=== PATIENT | male | born 1950 | race Native Hawaiian/Other Pacific Islander ===

== ENCOUNTER → 2019-06-14 | Outpatient (CLI) | payer MEDICARE, BC ==
[2019-06-14 06:48] LABS: African American GFR (CKD) >90 (>60 ml/min/1.73 sqM); Blood Urea Nitrogen 13 mg/dL (9-20); Non-African American GFR(CKD) >90 (>60 ml/min/1.73 sqM)
--- NOTE | 2019-06-14 08:29 | CT ---
EXAMINATION TYPE: CT chest w con DATE OF EXAM: 06/14/2019 COMPARISON: None HISTORY: Shortness of breath CT DLP: 463.30 mGycm Automated exposure control for dose reduction was used. CONTRAST: CT scan of the chest is performed with IV Contrast, patient injected with 100 mL of Isovue 300. FINDINGS: LUNGS: There is biapical pleural-based thickening. No consolidative pneumonia. No pleural effusion. N o pneumothorax. Subsegmental changes involving the lungs are most typical of scar or atelectasis. MEDIASTINUM: There are no greater than 1 cm hilar or mediastinal lymph nodes. The heart is mildly pro minent. A trace of pericardial fluid is seen. Atherosclerotic change aorta. Aorta of normal caliber. Mild coronary artery calcification seen.. OTHER: Hypertrophic and degenerative changes of the spine are seen. Correlate for hepatic steatosis. There is a 5 mm hyperdense lesion in the left lobe of the liver too small to characterize. Small fla sh hemangioma in the differential diagnosis IMPRESSION: 1. Apical pleural thickening with no acute intrathoracic process. 2. Mild coronary artery atherosclerotic changes. 3. 5 mm hyperdense lesion left lobe of liver is too small to characterize. Perhaps represents flash h emangioma. A 3 to 6 month follow-up CT of the abdomen could be obtained for further characterization
== END | disposition home or self-care (01) ==
LOC: RADCTMAIN 06:21
PROVIDERS: ATTEND Pediatrics
DX: J92.9 Pleural plaque without asbestos (principal); I25.10 Atherosclerotic heart disease of native coronary artery without angina pectoris; R06.02 Shortness of breath; Z87.891 Personal history of nicotine dependence
CPT/HCPCS: 82565; 84520; 71260; 36415; Q9967

== ENCOUNTER → 2019-06-29 | Outpatient (CLI) | payer MEDICARE, BC ==
--- NOTE | 2019-06-29 15:49 | US ---
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 EXAM MEASUREMENTS: RIGHT: Peak Systolic Velocity (PSV) cm/sec ----- Right CCA: 102. ----- Right ICA: 66.7 ----- Right ECA: 97.9 ICA/CCA ratio: 0.64 RIGHT: End Diastole cm/sec ----- Right CCA: 23.1 ----- Right ICA: 27.2 ----- Right ECA: 20.3 LEFT: Peak Systolic Velocity (PSV) cm/sec ----- Left CCA: 71.6 ----- Left ICA: 96.0 ----- Left ECA: 84.5 ICA/CCA ratio: 1.4 LEFT: End Diastole cm/sec ----- Left CCA: 26.6 ----- Left ICA: 43.3 ----- Left ECA: 19.2 VERTEBRALS (direction of flow): Right Vertebral: unable to see arterial flow Left Vertebral: Antegrade Avila scale images show mild peripheral plaque left carotid bulb level. Velocity measurements and rati os remain within normal limits in the visualized portion of both internal carotid arteries. IMPRESSION: No hemodynamically significant stenosis is seen in either internal carotid artery. Nor mal Antegrade flow in right vertebral artery is not documented. Criteria for Assigning % of Stenosis / Diameter reduction (Estimation based on the indirect measurements of the internal carotid artery velocities (ICA PSV). 1. Normal (no stenosis)=ICA PSV < 125 cm/s: ratio < 2.0: ICA EDV<40 cm/s. 2. Less than 50% stenosis=ICA PSV < 125 cm/s: ratio < 2.0: ICA EDV<40 cm/s. 3. 50 to 69% stenosis=ICA PSV of 125 to 230 cm/s: ration 2.0 ? 4.0: ICA EDV 40-100 cm/s. 4. Greater than 70% stenosis to near occlusion= ICA PSV > 230 cm/s: ratio > 4.0: ICA EDV > 100 cm/s. 5. Near occlusion= ICA PSV velocities may be low or undetectable: variable ratio and ICA EDV. 6. Total occlusion=unable to detect flow.
--- NOTE | 2019-06-30 11:00 | ECHOF ---
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 This was a technically difficult study with suboptimal views. The left ventricular size is normal. There is mild concentric left ventricular hypertrophy. Overa ll left ventricular systolic function is normal with, an EF between 55 - 60 %. The diastolic fillin g pattern is normal for the age of the patient 11.45. The right ventricle is normal in size. The left atrial size is normal. Normal LA size by volume 22+/-6 ml/m2. The right atrial size is normal. 5.0mg of Lumason was utilized for enhancement of images The aortic valve is trileaflet and appears structurally normal. The mitral valve is normal. There is trace mitral regurgitation. The tricuspid valve appears structurally normal. Trace tricuspid regurgitation present. Right carmen tricular systolic pressure is normal at < 35 mmHg. There is no pulmonic regurgitation present. The aortic root size is normal. Normal inferior vena cava with normal inspiratory collapse consistent with estimated right atrial pre ssure of 5 mmHg. There is no pericardial effusion. CONCLUSIONS -------- 1. Sinus rhythm. 2. This was a technically difficult study with suboptimal views. 3. The left ventricular size is normal. 4. There is mild concentric left ventricular hypertrophy. 5. Overall left ventricular systolic function is normal with, an EF between 55 - 60 %. 6. The diastolic filling pattern is normal for the age of the patient 11.45 7. The right ventricle is normal in size. 8. The left atrial size is normal. 9. Normal LA size by volume 22+/-6 ml/m2. 10. The right atrial size is normal. 11. 5.0mg of Lumason was utilized for enhancement of images 12. The aortic valve is trileaflet and appears structurally normal. 13. The mitral valve is normal. 14. There is trace mitral regurgitation. 15. The tricuspid valve appears structurally normal. 16. Trace tricuspid regurgitation present. 17. Right ventricular systolic pressure is normal at < 35 mmHg. 18. There is no pulmonic regurgitation present. 19. The aortic root size is normal. 20. Normal inferior vena cava with normal inspiratory collapse consistent with estimated right atrial pressure of 5 mmHg. 21. There is no pericardial effusion. MEDICAL STAFF COORDINATOR: Haylee Armando RDCS
== END | disposition home or self-care (01) ==
LOC: RADECHMAIN 14:10
PROVIDERS: ATTEND Pediatrics
DX: H34.232 Retinal artery branch occlusion, left eye (principal); R06.02 Shortness of breath; E78.5 Hyperlipidemia, unspecified
CPT/HCPCS: 93880; C8929; Q9950; 93306

== ENCOUNTER 2019-09-27 08:10 | Day surgery (SDC) | payer MEDICARE, BC ==
[2019-09-26 12:26] VITALS: BMI 31.7
[~2019-09-27 08:10] MED LIST: LACTATED RINGERS 1,000 ML IV SCH; TETRACAINE 0.5% OPHTH (PF) DROPS 4 ML BTL OP ONE
[2019-09-27 09:02] VITALS: TEMP 97.1
[2019-09-27] MEDS: CYCLOPENTOLATE 1% OPHTH SOLN 2 ML BTL OP ONE ×4 (09:02→09:17)
[2019-09-27] MEDS: PHENYLEPHRINE 2.5% OPHTH DRP 2ML OP NR ×3 (09:07→09:20)
[2019-09-27] MEDS ORDERED: fentaNYL (PF) 50 MCG/ML 2 ML AMP ONE (10:08)
[2019-09-27] MEDS ORDERED: MIDAZOLAM 2 MG/2 ML VIAL ONE (10:08)
[2019-09-27] MEDS ORDERED: DUOVISC KIT (GREEN BOX) INTRAOCULA ONE ×2 (10:12→10:27)
[2019-09-27] MEDS ORDERED: LIDOCAINE 1% (PF) 10MG/ML VIAL MISCELLANE ONE ×2 (10:12→10:27)
[2019-09-27] MEDS ORDERED: BALANCED SALT IRRIG SOLN COMB2 15 ML IRRIG.SOLN IRRIGATION ONE ×2 (10:12→10:27)
[2019-09-27] MEDS: TIMOLOL 0.5% OPHTH DROPS 5 ML BTL OP ONE ×3 (10:13→10:48)
[2019-09-27] MEDS: MOXIFLOXACIN HCL 0.5% DROPS 3 ML BTL OP ONE ×3 (10:13→10:48)
[2019-09-27] MEDS ORDERED: EPINEPHrine (PF) 0.3 ML in BALANCED SALT IRRIG SOLN COMB2 500 ML IRRIGATION ONE (10:21)
[2019-09-27] MEDS ORDERED: TRYPAN BLUE 0.06% SYRINGE 0.5 ML SYRINGE INTRAOCULA ONE (10:29)
[2019-09-27] MEDS ORDERED: HYALURONATE SODIUM INTRAOCULAR 1 EACH SYRINGE (12MG/ML) INTRAOCULA ONE (10:35)
--- NOTE | 2019-09-27 10:54 | P.OP ---
Date of Procedure: 09/27/19 Preoperative Diagnosis: NS & CS & POAG Postoperative Diagnosis: same Procedure(s) Performed: PIOL & iStent implant OS Implants: [id number] 17.0 & iStent Anesthesia: MAC Surgeon: Riki De Luna Estimated Blood Loss (ml): 0 Pathology: none sent Condition: stable Disposition: same day Indications for Procedure: blurry vision and glaucoma Description of Procedure: no complications
[2019-09-27 11:19] VITALS: BP 108/72; PULSE 67; RESP 16
--- NOTE | 2019-09-28 11:20 | OP ---
OPERATIVE REPORT DATE OF SURGERY: September 27, 2019. PROCEDURE PERFORMED: Phacoemulsification of cataract and intraocular lens implant with eye stent implantation of the left eye. 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 POSTOPERATIVE DIAGNOSES: Nuclear sclerosis and primary open-angle glaucoma mild stage. SURGEON: Dr. Riki De Luna. ANESTHESIA: MAC. ESTIMATED BLOOD LOSS: 0.5 mL. SPECIMEN: Taken none. NARRATIVE: After obtaining the appropriate consent, the patient was brought to the operating room. He was placed under cardiac monitoring, prepped and draped in the usual sterile manner. He was approached from his left temporal side and at the 5 o'clock position a 1.1 mm MVR blade was used to create a paracentesis port. Through this opening, 1% Xylocaine MPF 50/50 mix with balanced salt solution was injected into the anterior chamber. This was followed this was followed by installation of trypan blue which was allowed to dwell in the eye for approximately 1 minute. This was irrigated away with balanced salt solution and the anterior chamber was then stabilized using Viscoat. At the 3 o'clock position, a 2.5 mm keratome was used to create a self-sealing corneal flap incision. The patient was then asked to rotate his head approximately 45 degrees to his right and gonio prism was placed on the patient's eye. Identification of the trabecular meshwork was easily made due to the trypan staining and an eye stent model [id number] was advanced across the anterior chamber and implanted into Schlemm's canal with out any difficulty. The patient was then rotated back to the normal supine position and a cystotome was then introduced to begin a continuous tear capsulorrhexis which was completed using the Utrata forceps. Hydrodissection and hydrodelineation of the lens was accomplished with balanced salt solution. Phacoemulsification of the lens utilizing phaco chop was accomplished in 25.42 seconds at 15% power. Additional Xylocaine MPF was instilled into the anterior chamber. This was followed by removal of the remaining cortex under irrigation and aspiration as well as careful polishing of the posterior capsule in the capsule vacuum mode. Provisc was then used to stabilize the capsular bag and a [employer]ausch [employer] Lomb [id number] 17.0 diopter posterior chamber intraocular lens was then inserted into the capsular bag without difficulty. The irrigation/aspiration instrument was then introduced to remove the remaining viscoelastic from in and around the intraocular lens. The eye was then brought to normal intraocular pressure through the paracentesis port and the incisions were confirmed watertight. He then received 2 drops of moxifloxacin as well as 2 drops of 0.5% timolol. He was then lightly patched and shielded in the usual manner. There were no complications from the procedure. He tolerated the procedure well and returned to outpatient recovery in good condition. MMSARABJIT / AGATAN: [id number] / ALBERTINA
== END 2019-09-27 11:53 | disposition home or self-care (01) ==
LOC: OR 08:10
PROVIDERS: ATTEND Ophthalmology
DX: H40.1122 Primary open-angle glaucoma, left eye, moderate stage (principal); H25.13 Age-related nuclear cataract, bilateral; H34.232 Retinal artery branch occlusion, left eye; H40.001 Preglaucoma, unspecified, right eye; H52.4 Presbyopia; H52.12 Myopia, left eye; E66.9 Obesity, unspecified; F17.210 Nicotine dependence, cigarettes, uncomplicated; Z68.31 Body mass index [BMI] 31.0-31.9, adult; Z79.82 Long term (current) use of aspirin; Z79.899 Other long term (current) drug therapy; Z98.890 Other specified postprocedural states; Z97.3 Presence of spectacles and contact lenses
CPT/HCPCS: 0191T; 66984

== ENCOUNTER 2019-11-15 06:17 | Day surgery (SDC) | payer MEDICARE, BC ==
[2019-11-13 11:00] VITALS: BMI 31.7
[~2019-11-15 06:17] MED LIST changes: +MOXIFLOXACIN HCL 0.5% DROPS 3 ML BTL OP ONE; +TIMOLOL 0.5% OPHTH DROPS 5 ML BTL OP ONE
[2019-11-15] MEDS: CYCLOPENTOLATE 1% OPHTH SOLN 2 ML BTL OP ONE ×3 (06:56→07:10)
[2019-11-15 06:58] VITALS: TEMP 97.5
[2019-11-15] MEDS: PHENYLEPHRINE 2.5% OPHTH DRP 2ML OP NR ×3 (07:00→07:13)
[2019-11-15] MEDS ORDERED: LIDOCAINE 1% (10MG/ML) FOR IV START INTRADERMA ONE (07:08)
[2019-11-15] MEDS ORDERED: MIDAZOLAM 2 MG/2 ML VIAL ONE (07:27)
[2019-11-15] MEDS ORDERED: BALANCED SALT IRRIG SOLN COMB2 15 ML IRRIG.SOLN IRRIGATION ONE (07:27)
[2019-11-15] MEDS ORDERED: DUOVISC KIT (GREEN BOX) INTRAOCULA ONE (07:27)
[2019-11-15] MEDS ORDERED: LIDOCAINE 1% (PF) 10MG/ML VIAL SQ ONE (07:27)
[2019-11-15] MEDS ORDERED: EPINEPHrine (PF) 0.3 ML in BALANCED SALT IRRIG SOLN COMB2 500 ML IRRIGATION ONE (07:29)
[2019-11-15] MEDS ORDERED: TRYPAN BLUE 0.06% SYRINGE 0.5 ML SYRINGE MISCELLANE ONE (07:49)
[2019-11-15] MEDS ORDERED: EPINEPHrine (PF) 1 MG/ML AMP IRRIGATION ONE (07:49)
--- NOTE | 2019-11-15 08:11 | P.OP ---
Date of Procedure: 11/15/19 Preoperative Diagnosis: NS & POAG Postoperative Diagnosis: same Procedure(s) Performed: PIOL & iStent OD Implants: [id number] & [id number] Anesthesia: MAC Surgeon: Riki De Luna Estimated Blood Loss (ml): 0 Pathology: none sent Condition: stable Disposition: same day Indications for Procedure: blurry vision and poor glaucoma control Operative Findings: no complications
[2019-11-15 08:42] VITALS: BP 107/70; PULSE 67; RESP 20
--- NOTE | 2019-11-16 01:36 | OP ---
OPERATIVE REPORT DATE OF SURGERY: 11/15/2019. PROCEDURE: Phacoemulsification of cataract and intraocular lens implant of the right eye with iStent implantation. 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 POSTOPERATIVE DIAGNOSIS: Nuclear sclerosis and primary open-angle glaucoma mild stage. SURGEON: Dr. Riki De Luna. ANESTHESIA: Topical. ESTIMATED BLOOD LOSS: None. SPECIMEN TAKEN: None. NARRATIVE: After obtaining appropriate consent, the patient was brought to the operating room and placed under cardiac monitoring and prepped and draped in usual sterile manner. He was approached from his right temporal side and at the 11 o'clock position an MVR blade was used to create a paracentesis port. Through this opening 1% Xylocaine MPF 50:50 mix of balanced salt solution was injected into the anterior chamber. This was followed by instillation Trypan Blue which was left in the eye for 1 minute the the Trypan Blue was irrigated away and Viscoat was used to stabilize the anterior chamber. At the 9 o'clock position, a 2.5 mm keratome was used to create a self-sealing corneal flap incision. The patient was then asked to rotate his head approximately 45 degrees to his left, maintaining his gaze in that general direction and a gonioprism was placed on the patient's eye to identify the trabecular meshwork. A Glaukos model [id number] was advanced across the anterior chamber and placed within the trabecular meshwork with no difficulty. The patient was then rotated back to the normal supine position and a cystotome was introduced to begin a continuous tear capsulorrhexis which was completed using the Utrata forceps. Hydrodissection and hydrodelineation of the lens was accomplished with balanced salt solution. Phacoemulsification of the lens utilizing phaco chop was accomplished in 19.13 seconds at 14% power. Additional Xylocaine MPF was instilled into the anterior chamber. This was followed by removal of the remaining cortex under irrigation and aspiration as well as polishing of the posterior capsule in the capsule vacuum mode. Provisc was then used to stabilize the capsular bag and a Bausch and Lomb MX60, 18.0 diopter posterior chamber intraocular lens was then injected in the capsular bag without difficulty. The remaining viscoelastic was then removed from in and around the intraocular lens and the eye was then brought to normal intraocular pressure through the paracentesis port. Incisions were confirmed watertight. He then received 2 drops of 0.5% timolol followed by 2 drops of moxifloxacin and was lightly patched and shielded in the usual manner. There were no complications from the procedure. He tolerated the procedure well and was returned to outpatient recovery in good condition. FRANKY / SHAR: [id number] /
== END 2019-11-15 08:40 | disposition home or self-care (01) ==
LOC: OR 06:17
PROVIDERS: ATTEND Ophthalmology
DX: H25.11 Age-related nuclear cataract, right eye (principal); H40.1111 Primary open-angle glaucoma, right eye, mild stage; H40.1122 Primary open-angle glaucoma, left eye, moderate stage; H34.232 Retinal artery branch occlusion, left eye; H52.4 Presbyopia; H52.12 Myopia, left eye; Z98.42 Cataract extraction status, left eye; Z96.1 Presence of intraocular lens; Z98.890 Other specified postprocedural states; Z97.3 Presence of spectacles and contact lenses; Z79.899 Other long term (current) drug therapy
CPT/HCPCS: 0191T; 66984

== ENCOUNTER 2021-07-23 09:14 | Observation (INO) | payer BC, MEDICARE ==
--- NOTE | 2021-07-23 09:51 | XR ---
EXAMINATION TYPE: XR chest 2V DATE OF EXAM: 07/23/2021 COMPARISON: NONE HISTORY: Shortness of breath TECHNIQUE: Frontal and lateral views of the chest are obtained. FINDINGS: Scattered senescent parenchymal changes noted. Hyperinflation compatible with COPD. No evidence for infiltrate. No evidence for atelectasis. Heart size is stable. Mediastinal structures are stable and grossly unremarkable. No evidence for hilar prominence. Degenerative changes dorsal spine. IMPRESSION: 1. No evidence for acute pulmonary disease.
[2021-07-23 10:05] LABS: Basophils # (A) 0.1 k/uL (0-0.2); Basophils % (A) 1 %; Eosinophils # (A) 0.2 k/uL (0-0.7); Eosinophils % (A) 3 %; HCT 46.8 % (39.0-53.0); HGB 15.4 gm/dL (13.0-17.5); Lymphocytes # (A) 1.7 k/uL (1.0-4.8); Lymphocytes % (A) 20 %; MCH 31.9 pg (25.0-35.0); MCHC 32.9 g/dL (31.0-37.0); MCV 97.2 fL (80.0-100.0); Mean Platelet Volume 7.2; Monocytes # (A) 0.4 k/uL (0-1.0); Monocytes % (A) 5 %; Neutrophils # (A) 5.9 k/uL (1.3-7.7); Neutrophils % (A) 71 %; Platelet Count 240 k/uL (150-450); RBC 4.81 m/uL (4.30-5.90); RDW 12.3 % (11.5-15.5); WBC 8.3 k/uL (3.8-10.6)
[2021-07-23 10:17] LABS: ALT 14 U/L (4-49); AST 22 U/L (17-59); African American GFR (CKD) >90 (>60 ml/min/1.73 sqM); Albumin 3.7 g/dL (3.5-5.0); Alkaline Phosphatase 88 U/L (38-126); Anion Gap 4 mmol/L; Blood Urea Nitrogen 16 mg/dL (9-20); Calcium 8.6 mg/dL (8.4-10.2); Carbon Dioxide 25 mmol/L (22-30); Chloride 108 mmol/L (98-107); Glucose 100 mg/dL (74-99); Magnesium 2.2 mg/dL (1.6-2.3); Non-African American GFR(CKD) >90 (>60 ml/min/1.73 sqM); Potassium 4.2 mmol/L (3.5-5.1); Sodium 137 mmol/L (137-145); Total Bilirubin 0.6 mg/dL (0.2-1.3); Total Protein 6.7 g/dL (6.3-8.2)
[2021-07-23 10:18] LABS: Partial Thromboplastin Time 24.3 sec (22.0-30.0); Prothrombin Time 10.7 sec (9.0-12.0)
--- NOTE | 2021-07-23 10:38 | ED ---
General Adult HPI - General Chief complaint: Shortness of Breath Stated complaint: chest pain, SOB Time Seen by Provider: 07/23/21 09:23 Source: patient, RN notes reviewed Mode of arrival: ambulatory Limitations: no limitations - History of Present Illness Initial comments: 71-year-old male presents emergency Department with chief complaint of discomfort, exertional shortness of breath. Patient states has been present for last 6 months but shortly getting worse. He states he walks short distance he is stop his increasing work of breathing, discomfort in his chest. Patient states he did see his primary care physician who told him it made his lungs gave her an inhaler and which she states has not used much but did not help. No fevers or chills no cough or cold-like symptoms otherwise doesn't leg pain leg swelling patient denies any prior cardiac disease patient states that he does occasionally smoke cigarettes throughout the day. Patient denies any abdominal pain denies any orthopnea - Related Data Home Medications Medication Instructions Recorded Confirmed Atorvastatin [Lipitor] 10 mg PO DAILY 09/26/19 07/23/21 Fluticasone/Vilanterol [Breo 1 puff INHALATION RT-DAILY 07/23/21 07/23/21 Ellipta 100-25 Mcg Inhaler] Allergies Allergy/AdvReac Type Severity Reaction Status Date / Time No Known Allergies Allergy Verified 07/23/21 10:17 Review of Systems ROS Statement: Those systems with pertinent positive or pertinent negative responses have been documented in the HPI. ROS Other: All systems not noted in ROS Statement are negative. Past Medical History Past Medical History: Eye Disorder, Hyperlipidemia Additional Past Medical History / Comment(s): Right cataract. History of Any Multi-Drug Resistant Organisms: None Reported Past Surgical History: No Surgical Hx Reported Additional Past Surgical History / Comment(s): Colonoscopy, right cataract surgery. Past Anesthesia/Blood Transfusion Reactions: No Reported Reaction Additional Past Anesthesia/Blood Transfusion Reaction / Comment(s): HAS NEVER RECEIVED ANESTHESIA. Past Psychological History: No Psychological Hx Reported Smoking Status: Current every day smoker Past Alcohol Use History: Occasional Past Drug Use History: None Reported - Past Family History Mother Family Medical History: No Reported History General Exam Limitations: no limitations General appearance: alert, in no apparent distress Head exam: Present: atraumatic, normocephalic, normal inspection Eye exam: Present: normal appearance, PERRL, EOMI. Absent: scleral icterus, conjunctival injection, periorbital swelling ENT exam: Present: normal exam, normal oropharynx, mucous membranes moist Neck exam: Present: normal inspection, full ROM. Absent: tenderness, meningismus, lymphadenopathy Respiratory exam: Present: normal lung sounds bilaterally. Absent: respiratory distress, wheezes, rales, rhonchi, stridor Cardiovascular Exam: Present: regular rate, normal rhythm, normal heart sounds. Absent: systolic murmur, diastolic murmur, rubs, gallop, clicks Extremities exam: Present: pedal edema Neurological exam: Present: alert Skin exam: Present: warm, dry, intact, normal color. Absent: rash Course Vital Signs 07/23/21 07/23/21 07/23/21 09:17 09:29 10:22 Temperature 98.1 F Pulse Rate 70 73 Respiratory 18 25 H 16 Rate Blood Pressure 130/82 133/86 O2 Sat by Pulse 98 99 Oximetry 07/23/21 07/23/21 11:00 12:00 Temperature Pulse Rate 73 Respiratory 16 Rate Blood Pressure 134/79 O2 Sat by Pulse 97 Oximetry Medical Decision Making - Medical Decision Making 71-year-old presented for exertional dyspnea symptoms have been getting ready worse he's had some associated chest pain. There is no evidence of PE, troponin is negative. Patiently admitted for cardiac rule out, echocardiogram repeat troponin. - Lab Data Result diagrams: 07/23/21 09:56 07/23/21 09:56 Lab Results 07/23/21 07/23/21 07/23/21 Range/Units 09:56 09:56 09:56 WBC 8.3 (3.8-10.6) k/uL RBC 4.81 (4.30-5.90) m/uL Hgb 15.4 (13.0-17.5) gm/dL Hct 46.8 (39.0-53.0) % MCV 97.2 (80.0-100.0) fL MCH 31.9 (25.0-35.0) pg MCHC 32.9 (31.0-37.0) g/dL RDW 12.3 (11.5-15.5) % Plt Count 240 (150-450) k/uL MPV 7.2 Neutrophils % 71 % Lymphocytes % 20 % Monocytes % 5 % Eosinophils % 3 % Basophils % 1 % Neutrophils # 5.9 (1.3-7.7) k/uL Lymphocytes # 1.7 (1.0-4.8) k/uL Monocytes # 0.4 (0-1.0) k/uL Eosinophils # 0.2 (0-0.7) k/uL Basophils # 0.1 (0-0.2) k/uL PT 10.7 (9.0-12.0) sec INR 1.0 (<1.2) APTT 24.3 (22.0-30.0) sec D-Dimer 0.63 H (<0.60) mg/L FEU Sodium 137 (137-145) mmol/L Potassium 4.2 (3.5-5.1) mmol/L Chloride 108 H (98-107) mmol/L Carbon Dioxide 25 (22-30) mmol/L Anion Gap 4 mmol/L BUN 16 (9-20) mg/dL Creatinine 0.79 (0.66-1.25) mg/dL Est GFR (CKD-EPI)AfAm >90 (>60 ml/min/1.73 sqM) Est GFR (CKD-EPI)NonAf >90 (>60 ml/min/1.73 sqM) Glucose 100 H (74-99) mg/dL Plasma Lactic Acid Julien (0.7-2.0) mmol/L Calcium 8.6 (8.4-10.2) mg/dL Magnesium 2.2 (1.6-2.3) mg/dL Total Bilirubin 0.6 (0.2-1.3) mg/dL AST 22 (17-59) U/L ALT 14 (4-49) U/L Alkaline Phosphatase 88 (38-126) U/L Troponin I (0.000-0.034) ng/mL NT-Pro-B Natriuret Pep pg/mL Total Protein 6.7 (6.3-8.2) g/dL Albumin 3.7 (3.5-5.0) g/dL 07/23/21 07/23/21 07/23/21 Range/Units 09:56 09:56 09:56 WBC (3.8-10.6) k/uL RBC (4.30-5.90) m/uL Hgb (13.0-17.5) gm/dL Hct (39.0-53.0) % MCV (80.0-100.0) fL MCH (25.0-35.0) pg MCHC (31.0-37.0) g/dL RDW (11.5-15.5) % Plt Count (150-450) k/uL MPV Neutrophils % % Lymphocytes % % Monocytes % % Eosinophils % % Basophils % % Neutrophils # (1.3-7.7) k/uL Lymphocytes # (1.0-4.8) k/uL Monocytes # (0-1.0) k/uL Eosinophils # (0-0.7) k/uL Basophils # (0-0.2) k/uL PT (9.0-12.0) sec INR (<1.2) APTT (22.0-30.0) sec D-Dimer (<0.60) mg/L FEU Sodium (137-145) mmol/L Potassium (3.5-5.1) mmol/L Chloride (98-107) mmol/L Carbon Dioxide (22-30) mmol/L Anion Gap mmol/L BUN (9-20) mg/dL Creatinine (0.66-1.25) mg/dL Est GFR (CKD-EPI)AfAm (>60 ml/min/1.73 sqM) Est GFR (CKD-EPI)NonAf (>60 ml/min/1.73 sqM) Glucose (74-99) mg/dL Plasma Lactic Acid Julien 1.0 (0.7-2.0) mmol/L Calcium (8.4-10.2) mg/dL Magnesium (1.6-2.3) mg/dL Total Bilirubin (0.2-1.3) mg/dL AST (17-59) U/L ALT (4-49) U/L Alkaline Phosphatase (38-126) U/L Troponin I <0.012 (0.000-0.034) ng/mL NT-Pro-B Natriuret Pep 45 pg/mL Total Protein (6.3-8.2) g/dL Albumin (3.5-5.0) g/dL Disposition Clinical Impression: Exertional dyspnea, Chest pain Disposition: ADMITTED IP TO THIS HOSP Condition: Fair Referrals: Aashish Goodman MD [Primary Care Provider] - 1-2 days Time of Disposition: 12:30
--- NOTE | 2021-07-23 11:26 | CT ---
EXAMINATION TYPE: CT chest angio for PE DATE OF EXAM: 07/23/2021 COMPARISON: none HISTORY: Exertional dyspnea CT DLP: 534 mGycm CONTRAST: CT chest with contrast and 3D reconstruction with MIP imaging is performed without and with IV Contra st, patient injected with 100 ml mL of Isovue 370. Contrast-enhanced CT of the chest was performed through the course of the pulmonary arteries with renay g and mediastinal window settings submitted. 3D reconstruction with MIP imaging was also performed. PULMONARY ARTERIES: The pulmonary arteries and their major tributaries are patent. I do not see len dence for sizable filling defect to suggest pulmonary embolic process. LUNGS: The lungs are clear and free of infiltrate. No evidence for atelectasis. No pulmonary nodule or mass is detected. No pleural effusion. MEDIASTINUM: Thoracic aorta is of normal caliber,however, evaluation is limited given timing of the contrast bolus. If there is concern for thoracic aortic pathology consider HANNAH. Correlate clinicall y . The heart is not enlarged. No evidence for mediastinal mass. No mediastinal lymph nodes greater than 1cm. HILAR STRUCTURES: No evidence for mass. No hilar lymph nodes greater than 1 cm. UPPER ABDOMEN: No significant abnormality is seen. IMPRESSION: 1. No evidence for Pulmonary embolism at this time.
[2021-07-23] MEDS ORDERED: NITROGLYCERIN SL TABS 0.4 MG TAB SUBLINGUAL PRN (12:31)
[2021-07-23] MEDS ORDERED: ASPIRIN 81 MG PO STA (12:31)
--- NOTE | 2021-07-23 14:05 | P.HPIM ---
History of Present Illness H&P Date: 07/23/21 History of Presenting Illness: Patient is a very pleasant 71-year-old male with a past medical history of hyperlipidemia. He presented to the emergency department with a chief complaint of worsening shortness of breath with exertion. Patient reports this began approximately 6 months ago and has progressively worsened. Patient's family at bedside reports that they have noticed over the past week the patient cannot even bend over and tie his shoes without taking more than 5 minutes to recover in which they report he gasps for air. Patient denies having any chest pain or palpitations, dizziness, lightheadedness, abdominal pain, nausea, vomiting, changes in appetite, changes in or difficulties with urinary or bowel function, recent weight loss or weight gain and denies having any numbness/tingling/weakness in his extremities. Patient does report nicotine use of smoking approximately 4-5 cigarettes daily. In the emergency department patient underwent full evaluation. CBC and CMP were unremarkable. Troponin was negative at less than 0.012. Chest x-ray was negative. D-dimer was elevated at 0.063 and CTA completed which was also negative for pulmonary emboli or any other acute cardiopulmonary process. EKG showing normal sinus rhythm at 77 bpm with J-point elevation in leads II and V6. Patient admitted to observation under our services and to undergo a cardiac workup. Consult was placed to cardiology. Review of systems: Pertinent positives and negatives as discussed in HPI, a complete review of systems was performed and all other systems are negative. Physical exam: Vital signs reviewed and stable. General: Nontoxic, no distress and appears stated age. Derm: Skin warm and dry, normal coloration for ethnicity. Head: Atraumatic, normocephalic and symmetric. Eyes: EOMs intact, no lid lag, and anicteric sclera Mouth: no lip lesions, mucus membranes moist Cardiovascular: regular rate and rhythm with normal S1S2, no murmur, positive posterior tibial pulses bilaterally, and cap refill < 2 seconds. Lungs: Respirations even, regular, and unlabored on room air. Lungs CTA bilaterally, no rhonchi, no rales, no wheezing, and no accessory muscle usage. Abdominal: soft, nontender to palpation, no guarding, no appreciable organomegaly Ext: ROM intact. No gross muscle atrophy, no edema, no contractures Neuro: Speech clear, face symmetrical and CN II-XII grossly intact with no noted focal neuro deficits Psych: Alert and oriented to person, place, time, and situation. Appropriate and pleasant affect. Assessment and Plan of Care: Exertional dyspnea, rule out acute coronary event Hyperlipidemia -Cardiology consult, appreciate further recommendations -Telemetry monitoring -Trend troponins -Cardiac diet, NPO at midnight -Lipid profile with a.m. labs. -Echocardiogram -Patient counseled on smoking cessation and risks of continued use, patient will need to follow up outpatient with supply chain buyer for PFTs. The patient is admitted with an anticipated greater than 2 midnight stay for evaluation of exertional dyspnea CODE STATUS: Full code DVT prophylaxis: Heparin Discussed with: Patient, patient's son, and RN Anticipated discharge date: 1-[address]: Home A total of 40 minutes was spent on the care of this complex patient more than 50% of the time was spent in counseling and care coordination. Past Medical History Past Medical History: Eye Disorder, Hyperlipidemia Additional Past Medical History / Comment(s): Right cataract. History of Any Multi-Drug Resistant Organisms: None Reported Past Surgical History: No Surgical Hx Reported Additional Past Surgical History / Comment(s): Colonoscopy, right cataract surgery. Past Anesthesia/Blood Transfusion Reactions: No Reported Reaction Additional Past Anesthesia/Blood Transfusion Reaction / Comment(s): HAS NEVER RECEIVED ANESTHESIA. Past Psychological History: No Psychological Hx Reported Smoking Status: Current every day smoker Past Alcohol Use History: Occasional Past Drug Use History: None Reported - Past Family History Mother Family Medical History: No Reported History Father Family Medical History: CVA/TIA, Diabetes Mellitus Additional Family Medical History / Comment(s): Father had a CVA and was wheelchair bound after that. Medications and Allergies Home Medications Medication Instructions Recorded Confirmed Type Atorvastatin [Lipitor] 10 mg PO DAILY 09/26/19 07/23/21 History Fluticasone/Vilanterol [Breo 1 puff INHALATION RT-DAILY 07/23/21 07/23/21 History Ellipta 100-25 Mcg Inhaler] Nitroglycerin Sl Tabs [Nitrostat] 0.4 mg SUBLINGUAL Q5M PRN 90 Days 07/25/21 Rx #90 tab Allergies Allergy/AdvReac Type Severity Reaction Status Date / Time No Known Allergies Allergy Verified 07/23/21 10:17 Physical Exam Vitals: Vital Signs Temp Pulse Resp BP Pulse Ox 07/23/21 12:42 77 18 126/76 98 07/23/21 12:00 97 07/23/21 11:00 73 16 134/79 07/23/21 10:22 73 16 133/86 99 07/23/21 09:29 25 H 07/23/21 09:17 98.1 F 70 18 130/82 98 Intake and Output 07/22/21 07/23/21 07/23/21 22:59 06:59 14:59 Other: Weight 90.718 kg Results CBC & Chem 7: 07/25/21 06:46 07/25/21 06:46 Labs: Abnormal Lab Results - Last 24 Hours (Table) 07/23/21 07/23/21 Range/Units 09:56 09:56 D-Dimer 0.63 H (<0.60) mg/L FEU Chloride 108 H (98-107) mmol/L Glucose 100 H (74-99) mg/dL Assessment and Plan Assessment: This documentation was completed by the Nurse Practitioner. History, physical examination including assessment and plan were only completed by Nurse Practitioner and was NOT evaluated by myself the attending physician including all plan of care including discharge planning and documentation. I did NOT participate or have any communication regarding the patient, including orders, imaging, diagnostic work up, consultations, communication with registered RN/triage technician and discharge planning/instructions. I will be co-signing this documentation as this is a requirement per [facility].
[2021-07-23] MEDS: NICOTINE 7MG/24HR PATCH TRANSDERM SCH (19:38)
[2021-07-23] MEDS: HEPARIN SODIUM,PORCINE/PF 5,000 UNIT/0.5 ML SYRINGE SQ SCH (22:50)
[2021-07-24] MEDS: NICOTINE 7MG/24HR PATCH TRANSDERM SCH (08:04)
[2021-07-24] MEDS: HEPARIN SODIUM,PORCINE/PF 5,000 UNIT/0.5 ML SYRINGE SQ SCH ×3 (08:04→22:53)
[2021-07-24] MEDS: ATORVASTATIN 10 MG TAB PO SCH (08:04)
[2021-07-24] MEDS: ASPIRIN 325 MG TAB PO SCH (08:04)
--- NOTE | 2021-07-24 09:10 | P.CRDCN ---
History of Present Illness History of present illness: HISTORY OF PRESENTING ILLNESS This is a pleasant 71-year-old male past medical history significant for hyperlipidemia, tobacco use. 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 We have been asked to see in consultation for exertional dyspnea. Patient presents to the emergency department with complaints of exertional dyspnea. He states this has been going on for some times now over 6 months. He states lately though it has been getting worse. He states with any activity, as in doing work outside the house, going for walks he has more shortness of breath. He states his family was very concerned and wanted him to get evaluated. He denies any chest pain, diaphoresis, nausea, vomiting, palpitations, lightheadedness, dizziness, syncope or near syncope. He denies history of Coronary artery disease, DC, stroke, diabetes, or hypertension. He does smoke daily, currently about 5 cigarettes a day. DIAGNOSTICS EKG reveals sinus rhythm HR 77, non-specific abnormalities in V2 Telemetry tracings indicate sinus mechanism, heart rate 6570s. CT chest revealed no evidence of pulmonary embolism, no acute process found. Laboratory reviewed, d-dimer 0.6, troponin negative, proBNP 45, sodium 137, potassium 4.2, BUN 16, Scr 0.79, Mag 2.2. CBC unremarkable. Current home cardiac medications include atorvastatin 10mg daily , Breo Ellipta Most recent 2D echo in 06/2019, EF 5560 percent, mild concentric LVH, trace mitral regurgitation REVIEW OF SYSTEMS At the time of my exam: CONSTITUTIONAL: Denies fever or chills. CARDIOVASCULAR: Denies chest pain, shortness of breath, orthopnea, PND or pa lpitations. RESPIRATORY: Denies cough. GASTROINTESTINAL: Denies abdominal pain, diarrhea, constipation, nausea or vomiting. MUSCULOSKELETAL: Denies myalgias. NEUROLOGIC: Denies numbness, tingling, headacbe or weakness. ENDOCRINE: Denies fatigue, weight change, polydipsia or polyurina. GENITOURINARY: Denies burning, hematuria or urgency with micturation. HEMATOLOGIC: Denies history of anemia or bleeding. PHYSICAL EXAMINATION Vitals reviewed CONSTITUTIONAL: No apparent distress. HEENT: Head is normocephalic. Pupils are equal, round. Sclerae anicteric. Mucous membranes of the mouth are moist. No JVD. No carotid bruit. CHEST EXAMINATION: Lungs are clear to auscultation. No chest wall tenderness is noted on palpation or with deep breathing. HEART EXAMINATION: Regular rate and rhythm. S1, S2 heard. No murmurs, gallops or rub. ABDOMEN: Soft, nontender. Positive bowel sounds. EXTREMITIES: 2+ peripheral pulses, no lower extremity edema and no calf tenderness. NEUROLOGIC EXAMINATION: Patient is awake, alert and oriented x3. ASSESSMENT Exertional dyspnea, unclear etiology if pulmonary vs cardiac etiology, acute coronary syndrome has been ruled out Hyperlipidemia Tobacco use PLAN An acute coronary event has been ruled out with no EKG evidence of ischemia and negative cardiac enzymes. Obtain 2D echocardiogram and doppler study to assess cardiac structure and function. Perform Cardiolite stress test to assess for stress induced cardiac ischemia. If abnormal will consider coronary angiography. If stress test is negative, ok to discharge from a cardiology perspective, and patient may follow up outpatient. Smoking cessation discussed and highly recommended. Thank you kindly for this consultation. Nurse practitioner note has been reviewed by physician. Signing provider agrees with the documented findings, assessment, and plan of care. Past Medical History Past Medical History: Eye Disorder, Hyperlipidemia Additional Past Medical History / Comment(s): Right cataract. History of Any Multi-Drug Resistant Organisms: None Reported Past Surgical History: No Surgical Hx Reported Additional Past Surgical History / Comment(s): Colonoscopy, right cataract surgery. Past Anesthesia/Blood Transfusion Reactions: No Reported Reaction Additional Past Anesthesia/Blood Transfusion Reaction / Comment(s): HAS NEVER RECEIVED ANESTHESIA. Past Psychological History: No Psychological Hx Reported Smoking Status: Current every day smoker Past Alcohol Use History: Occasional Past Drug Use History: None Reported - Past Family History Mother Family Medical History: No Reported History Father Family Medical History: CVA/TIA, Diabetes Mellitus Additional Family Medical History / Comment(s): Father had a CVA and was wheelchair bound after that. Medications and Allergies Home Medications Medication Instructions Recorded Confirmed Type Atorvastatin [Lipitor] 10 mg PO DAILY 09/26/19 07/23/21 History Fluticasone/Vilanterol [Breo 1 puff INHALATION RT-DAILY 07/23/21 07/23/21 History Ellipta 100-25 Mcg Inhaler] Allergies Allergy/AdvReac Type Severity Reaction Status Date / Time No Known Allergies Allergy Verified 07/23/21 10:17 Physical Exam Vitals: Vital Signs Temp Pulse Resp BP Pulse Ox 04/20/22 12:42 77 18 126/76 98 07/23/21 12:00 97 07/23/21 11:00 73 16 134/79 07/23/21 10:22 73 16 133/86 99 07/23/21 09:29 25 H 07/23/21 09:17 98.1 F 70 18 130/82 98 Intake and Output 07/22/21 07/23/21 07/23/21 22:59 06:59 14:59 Other: Weight 90.718 kg Results 07/23/21 09:56 07/23/21 09:56 Cardiac Enzymes 07/23/21 07/23/21 Range/Units 09:56 09:56 AST 22 (17-59) U/L Troponin I <0.012 (0.000-0.034) ng/mL Coagulation 07/23/21 Range/Units 09:56 PT 10.7 (9.0-12.0) sec APTT 24.3 (22.0-30.0) sec CBC 07/23/21 Range/Units 09:56 WBC 8.3 (3.8-10.6) k/uL RBC 4.81 (4.30-5.90) m/uL Hgb 15.4 (13.0-17.5) gm/dL Hct 46.8 (39.0-53.0) % Plt Count 240 (150-450) k/uL Comprehensive Metabolic Panel 07/23/21 Range/Units 09:56 Sodium 137 (137-145) mmol/L Potassium 4.2 (3.5-5.1) mmol/L Chloride 108 H (98-107) mmol/L Carbon Dioxide 25 (22-30) mmol/L BUN 16 (9-20) mg/dL Creatinine 0.79 (0.66-1.25) mg/dL Glucose 100 H (74-99) mg/dL Calcium 8.6 (8.4-10.2) mg/dL AST 22 (17-59) U/L ALT 14 (4-49) U/L Alkaline Phosphatase 88 (38-126) U/L Total Protein 6.7 (6.3-8.2) g/dL Albumin 3.7 (3.5-5.0) g/dL Current Medications Generic Name Dose Route Start Last Admin Trade Name Freq PRN Reason Stop Dose Admin Aspirin 325 mg 07/24/21 09:00 Aspirin 325 Mg Tab PO DAILY CLAUDIO Atorvastatin Calcium 10 mg 07/24/21 09:00 Atorvastatin 10 Mg Tab PO DAILY CLAUDIO Nitroglycerin 0.4 mg 07/23/21 12:31 Nitroglycerin Sl Tabs 0.4 Mg Tab SUBLINGUAL Q5M PRN Chest Pain Intake and Output 07/22/21 07/23/21 07/23/21 22:59 06:59 14:59 Other: Weight 90.718 kg Patient Weight 07/24/21 06:59 Weight 90.718 kg 07/23/21 09:56 07/23/21 09:56
[2021-07-24 09:52] LABS: Chol/HDL Ratio 3.56 Ratio; LDL Cholesterol,Calculated 68.9 mg/dL (0.0-131.0)
--- NOTE | 2021-07-24 10:00 | CA ---
Transthoracic Echo Report Name: Abilio Salas Age: 71 Gender: M : 1950 Exam Date: 07/23/2021 13:50 Exam Location: [facility] Ht (in): 69 Wt (lb): 200 Ordering Physician: Jack Ann Attending/Referring Phys: [id number], Marissa Coil Former Cheryl Mondragon, RDCS Procedure CPT: Indications: exertional dyspnea Cardiac Hx: Technical Quality: Fair Contrast 1: Total Dose (mL): Contrast 2: Total Dose (mL): MEASUREMENTS (Male / Female) Normal Values 2D ECHO LV Diastolic Diameter PLAX 4.4 cm 4.2 - 5.9 / 3.9 - 5.3 cm LV Systolic Diameter PLAX 3.3 cm IVS Diastolic Thickness 1.2 cm 0.6 - 1.0 / 0.6 - 0.9 cm LVPW Diastolic Thickness 1.2 cm 0.6 - 1.0 / 0.6 - 0.9 cm LV Relative Wall Thickness 0.5 RV Internal Dim ED PLAX 3.2 cm LA Systolic Diameter LX 3.6 cm 3.0 - 4.0 / 2.7 - 3.8 cm LA Volume 41.4 cm 18 - 58 / 22 - 52 cm M-MODE Aortic Root Diameter MM 3.3 cm MV E Point Septal Separation 0.7 cm AV Cusp Separation MM 2.3 cm DOPPLER AV Peak Velocity 130.1 cm/s AV Peak Gradient 6.8 mmHg MV Area PHT 3.0 cm Mitral E Point Velocity 76.6 cm/s Mitral A Point Velocity 84.2 cm/s Mitral E to A Ratio 0.9 MV Deceleration Time 250.6 ms MV E' Velocity 6.7 cm/s Mitral E to MV E' Ratio 11.4 FINDINGS Left Ventricle Left ventricular ejection fraction is estimated at 60-65%. Mildly increased septal wall thickness. Right Ventricle The right ventricle is normal in size and function. Right Atrium The right atrium is normal in size. Left Atrium The left atrium is normal in size. Mitral Valve Structurally normal mitral valve without significant stenosis or prolapse. There is no mitral regurgitation. Aortic Valve Structurally normal aortic valve without significant sclerosis or stenosis. There is no aortic regurgitation. Tricuspid Valve Structurally normal tricuspid valve without significant stenosis. Pulmonary artery systolic pressure is normal. Pulmonic Valve Structurally normal pulmonic valve without significant stenosis. There is no pulmonic regurgitation. Pericardium Normal pericardium without effusion. Aorta Normal aortic root dimension. CONCLUSIONS #1. Normal left in size and function with an ejection fraction of 60-65%. #2. Normal valvular structure and function. #3. Normal chamber sizes. #4. . No pericardial effusion Previewed by: Dr. Martha Helm MD (Electronically Signed) Final Date: 24 July 2021 09:59
--- NOTE | 2021-07-24 11:23 | NM ---
EXAMINATION TYPE: NM stress cardiolite complete DATE OF EXAM: 07/24/2021 COMPARISON: NONE HISTORY: Exertional dyspnea TECHNIQUE: After the intravenous administration of 9.6 mCi Tc 99m Sestamibi - Rest images obtained 4 5 minutes post injection. The patient exercised using a [employer] ROSA protocol and 1 minute prior to peak e xercise was injected with 25.3 mCi Tc 99m Sestamibi - Stress images obtained 15 minutes post injectio n. FINDINGS: Targeted heart rate was achieved during performance of the study, patient achieved 93% predicted maxi mal heart rate. Review of stress and rest SPECT images demonstrates decreased uptake along the inferi or wall on stress and rest images, some decreased uptake is present along the septum on stress as com pared to rest images. Gated analysis shows normal wall motion with an estimated left ventricular eje ction fraction of 65 %. IMPRESSION: There may be some stress-induced left ventricular myocardial ischemia along the septum, consider echo cardiographic correlation for elevated cardiac ejection fraction
--- NOTE | 2021-07-24 12:25 | P.STRESS ---
- Stress Test Note Stress Test Results/Findings: Exam Performed: NM stress cardiolite complete Exam Date: 07/24/21 Reason for Exam: Short of breath Height: 5 ft 9 in Weight: 90.72 kg Protocol: Lionel Stage: 3 Duration of Exercise: 9:01 Resting Heart Rate: 72 Resting Blood Pressure: 132/83 Maximum Achieved Heart Rate: 140 Maximum Achieved Blood Pressure: 208/68 85% PMHR: 128 100% PMHR: 151 METS: 10.5 Technologist Comment: Stress Test Results/Findings: This is a 71-year-old gentleman was admitted to hospital with complaints of exertional shortness of breath. Patient has history of smoking and hypercholesteremia. Stress data: Baseline EKG showed sinus rhythm with IA interval and QRS duration. Blood pressure at rest is 130/83 with pulse rate of 77. Patient walked on the Lionel protocol for 9 minutes achieving a maximal heart rate of 140 with a blood pressure of 208/68. EKGs taken during and after the exercise did not show any changes of ischemia. Patient did not experience any chest pain. No arrhythmias are noted. Final impression: #1. Negative stress test #2. He did not experience any chest pain #3. The test was stopped because of shortness of breath before. #4. Report on the nuclear images to be given by the radiologist
[2021-07-24] MEDS ORDERED: ALPRAZolam 0.5 MG TAB PO PRN (12:26)
[2021-07-24] MEDS ORDERED: ALPRAZolam 0.25 MG TAB PO PRN (12:26)
--- NOTE | 2021-07-24 17:57 | P.PN ---
Subjective Progress Note Date: 07/24/21 Hospital course: Patient is a very pleasant 71-year-old male with a past medical history of hyperlipidemia. He presented to the emergency department with a chief complaint of worsening shortness of breath with exertion. Patient reports this began approximately 6 months ago and has progressively worsened. Patient's family at bedside reports that they have noticed over the past week the patient cannot even bend over and tie his shoes without taking more than 5 minutes to recover in which they report he gasps for air. Patient denies having any chest pain or palpitations, dizziness, lightheadedness, abdominal pain, nausea, vomiting, changes in appetite, changes in or difficulties with urinary or bowel function, recent weight loss or weight gain and denies having any numbnes s/tingling/weakness in his extremities. Patient does report nicotine use of smoking approximately 4-5 cigarettes daily. In the emergency department patient underwent full evaluation. CBC and CMP were unremarkable. Troponin was negative at less than 0.012. Chest x-ray was negative. D-dimer was elevated at 0.063 and CTA completed which was also negative for pulmonary emboli or any other acute cardiopulmonary process. EKG showing normal sinus rhythm at 77 bpm with J-point elevation in leads II and V6. Patient admitted to observation under our services and to undergo a cardiac workup. Consult was placed to cardiology. Patient monitored overnight and troponins trended 3 all resulting less than 0.012. Patient underwent an echocardiogram which revealed normal EF of 60-65% with no significant valvular abnormalities. 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 Cardiology discussed findings with patient and recommending patient undergo cardiac cath. Plans are for cardiac catheterization tomorrow morning. Physical exam: Patient was seen and fully evaluated at the bedside this morning. He is free from chest pain or discomfort at this time and denies experiencing any shortness of breath at rest. Patient and his son at bedside were updated on findings of stress test and all questions answered at this time. Patient denies having any additional complaints or needs at this time. . Vital signs reviewed and stable. General: Nontoxic, no distress and appears stated age. Derm: Skin warm and dry, normal coloration for ethnicity. Head: Atraumatic, normocephalic and symmetric. Eyes: EOMs intact, no lid lag, and anicteric sclera Mouth: no lip lesions, mucus membranes moist Cardiovascular: regular rate and rhythm with normal S1S2, no murmur, positive posterior tibial pulses bilaterally, and cap refill < 2 seconds. Lungs: Respirations even, regular, and unlabored on room air. Lungs CTA bilaterally, no rhonchi, no rales, no wheezing, and no accessory muscle usage. Abdominal: soft, nontender to palpation, no guarding, no appreciable organomegaly Ext: ROM intact. No gross muscle atrophy, no edema, no contractures Neuro: Speech clear, face symmetrical and CN II-XII grossly intact with no noted focal neuro deficits Psych: Alert and oriented to person, place, time, and situation. Appropriate and pleasant affect. Assessment and Plan of Care: Exertional dyspnea, rule out acute coronary event Hyperlipidemia -Cardiology following, plans for cardiac catheterization tomorrow morning. -Telemetry monitoring -Troponins negative -Cardiac diet, NPO at midnight -Lipid profile pending -Echocardiogram revealed normal EF of 60-65% with no significant valvular abnormalities. -Patient then underwent a cardiac Cardiolite stress test which revealed stress induced left ventricular myocardial ischemia along the septum. -Patient counseled on smoking cessation and risks of continued use, patient will need to follow up outpatient with propulsion engineer for PFTs. CODE STATUS: Full code DVT prophylaxis: Heparin Discussed with: Patient, patient's son, and RN Anticipated discharge date: 1-[address]: Home A total of 40 minutes was spent on the care of this complex patient more than 50% of the time was spent in counseling and care coordination. Objective - Vital Signs Vital signs: Vital Signs Temp 97.8 F 07/24/21 07:00 Pulse 72 07/24/21 07:00 Resp 18 07/24/21 07:00 BP 114/72 07/24/21 07:00 Pulse Ox 96 07/24/21 07:00 Intake & Output 07/23/21 07/24/21 07/24/21 18:59 06:59 18:59 Weight 90.718 kg 90.72 kg Other: # Voids 1 1 - Labs CBC & Chem 7: 07/23/21 09:56 07/23/21 09:56 Labs: Abnormal Lab Results - Last 24 Hours (Table) 07/23/21 Range/Units 09:56 Triglycerides 191.00 H (0.00-149.00) mg/dL
[2021-07-24] MEDS: SODIUM CHLORIDE 0.9% 1,000 ML in EMPTY BAG 1 BAG IV SCH (19:45)
[2021-07-25] MEDS ORDERED: HEPARIN SODIUM,PORCINE 10,000 UNIT in SODIUM CHLORIDE 0.9% 1,000 ML IRRIGATION PRN (07:00)
[2021-07-25] MEDS ORDERED: HEPARIN SODIUM,PORCINE 2,500 UNIT in SODIUM CHLORIDE 0.9% 250 ML IRRIGATION PRN (07:00)
[2021-07-25 07:29] LABS: African American GFR (CKD) >90 (>60 ml/min/1.73 sqM); Anion Gap 6 mmol/L; Basophils % (A) 1 %; Blood Urea Nitrogen 14 mg/dL (9-20); Calcium 8.3 mg/dL (8.4-10.2); Carbon Dioxide 24 mmol/L (22-30); Chloride 107 mmol/L (98-107); Eosinophils # (A) 0.1 k/uL (0-0.7); Eosinophils % (A) 2 %; Glucose 114 mg/dL (74-99); HCT 44.7 % (39.0-53.0); HGB 14.5 gm/dL (13.0-17.5); Lymphocytes # (A) 1.4 k/uL (1.0-4.8); Lymphocytes % (A) 22 %; MCH 31.9 pg (25.0-35.0); MCHC 32.4 g/dL (31.0-37.0); MCV 98.5 fL (80.0-100.0); Mean Platelet Volume 7.5; Monocytes # (A) 0.4 k/uL (0-1.0); Monocytes % (A) 6 %; Neutrophils # (A) 4.2 k/uL (1.3-7.7); Neutrophils % (A) 68 %; Non-African American GFR(CKD) 89 (>60 ml/min/1.73 sqM); Platelet Count 220 k/uL (150-450); Potassium 4.2 mmol/L (3.5-5.1); RBC 4.54 m/uL (4.30-5.90); RDW 12.3 % (11.5-15.5); Sodium 137 mmol/L (137-145); WBC 6.2 k/uL (3.8-10.6)
[2021-07-25] MEDS: SODIUM CHLORIDE 0.9% 1,000 ML in EMPTY BAG 1 BAG IV SCH (08:15)
[2021-07-25] MEDS: ATORVASTATIN 10 MG TAB PO SCH (08:18)
[2021-07-25] MEDS: HEPARIN SODIUM,PORCINE/PF 5,000 UNIT/0.5 ML SYRINGE SQ SCH (08:18)
[2021-07-25] MEDS: ASPIRIN 325 MG TAB PO SCH (08:18)
[2021-07-25] MEDS: NICOTINE 7MG/24HR PATCH TRANSDERM SCH (08:18)
[2021-07-25] MEDS ORDERED: SODIUM CHLORIDE 0.9% 500 ML 500 ML IV ONE (09:40)
[2021-07-25] MEDS ORDERED: fentaNYL (PF) 50 MCG/ML 2 ML AMP IV ONE (09:45)
[2021-07-25] MEDS ORDERED: MIDAZOLAM 2 MG/2 ML VIAL IV ONE (09:46)
[2021-07-25] MEDS ORDERED: LIDOCAINE 1% INJ 10MG/ML (5 ML VIAL-PF) SQ ONE (09:47)
[2021-07-25] MEDS ORDERED: VERAPAMIL SYRINGE (5 MG/10 ML) INTRAARTER ONE (09:50)
[2021-07-25] MEDS ORDERED: HEPARIN SODIUM 1,000 UN/ML (10ML VL) IV ONE (09:56)
[2021-07-25] MEDS ORDERED: RX INFO: IV CONTRAST WAS GIVEN 1 EACH MISC MISCELLANE PRN (10:07)
[2021-07-25] MEDS ORDERED: IOPAMIDOL-370 125ML BTL INJ ONE (10:12)
--- NOTE | 2021-07-25 10:14 | P.CARDCATH ---
Date of Procedure: 07/25/21 Preoperative Diagnosis: Shortness of breath and positive stress test Postoperative Diagnosis: Normal coronary arteries. Elevated end-diastolic pressure Procedure(s) Performed: Left heart catheterization without left ventriculography Description of Procedure: HISTORY: This is a 71-year-old gentleman with history of hypertension who was admitted to the hospital with complaints of progressive shortness of breath, had a nuclear stress test which was suggestive of possible ischemia of the septum. He is advised to have cardiac catheterization for definitive diagnosis. He was also advised to consider stress echo but preferred to have cardiac cath CONSENT:I have discussed the risks, benefits and alternative therapies for the above-mentioned procedure and for both sedation/analgesia as well as necessary blood product administration, if indicated, as they pertain to this patient. The patient has indicated understanding and acceptance of the risks and procedures discussed. PROCEDURE: Patient was brought to the lab in a fasting state. Patient was given some IV sedation. The right wrist is infiltrated with lidocaine and right radial artery was entered using Seldinger technique. A 6-Faroese catheter was left in place and selective coronary arteriography was performed. Patient tolerated the procedure well. TR band was applied for hemostasis. No immediate complications were noted and patient was transferred to [facility] in a stable condition Conscious Sedation: Versed 1mg Fentanyl 50 micrograms Duration 19minutes HEMODYNAMICS: Aortic pressure is 110/60. The left ventricle end-diastolic pressure is 20. No gradient across the aortic valve SELECTIVE CORONARY ARTERIOGRAPHY: LEFT MAIN: Normal length and free of occlusive disease THE LEFT ANTERIOR DESCENDING CORONARY ARTERY:. Moderate caliber vessel giving rise to good-sized first diagonal branch. Free of occlusive disease THE LEFT CIRCUMFLEX AND IS CORONARY ARTERY:. Nondo minant vessel giving rise to a caliber OM branch. Free of any occlusive disease THE RIGHT CORONARY ARTERY:. Dominant vessel giving rise to PDA and PLV. Free of occlusive disease. Good caliber LEFT VENTRICULOGRAPHY: Not performed FINAL IMPRESSION:. Normal coronary arteries. Elevated end-diastolic pressure is sized to diastolic dysfunction PLAN: Maximum medical therapy and risk factor modification PROGNOSIS:. Good
[2021-07-25] MEDS ORDERED: SODIUM CHLORIDE 0.9% 1,000 ML IV SCH (10:15)
[2021-07-25 13:57] VITALS: TEMP 98.1
--- NOTE | 2021-07-25 14:21 | EST ---
Stress Test Results/Findings: Exam Performed: NM stress cardiolite complete Exam Date: 07/24/21 Reason for Exam: Short of breath Height: 5 ft 9 in Weight: 90.72 kg Protocol: Lionel Stage: 3 Duration of Exercise: 9:01 Resting Heart Rate: 72 Resting Blood Pressure: 132/83 Maximum Achieved Heart Rate: 140 Maximum Achieved Blood Pressure: 208/68 85% PMHR: 128 100% PMHR: 151 METS: 10.5 Technologist Comment: Stress Test Results/Findings: This is a 71-year-old gentleman was admitted to hospital with complaints of exertional shortness of breath. Patient has history of smoking and hypercholesteremia. Stress data: Baseline EKG showed sinus rhythm with KS interval and QRS duration. Blood pressure at rest is 130/83 with pulse rate of 77. Patient walked on the Lionel protocol for 9 minutes achieving a maximal heart rate of 140 with a blood pressure of 208/68. EKGs taken during and after the exercise did not show any changes of ischemia. Patient did not experience any chest pain. No arrhythmias are noted. Final Impression: #1. Negative stress test #2. He did not experience any chest pain #3. The test was stopped because of shortness of breath before. #4. Report on the nuclear images to be given by the Radiologist ALBERTINA
[2021-07-25 14:23] VITALS: BP 105/67; PULSE 75; RESP 16
--- NOTE | 2021-07-25 15:22 | P.DS ---
Providers Date of admission: 07/24/21 13:40 Expected date of discharge: 07/25/21 Attending physician: Chano Trevino MD Consults: 07/23/21 12:31 Consult Physician Urgent Consulting Provider: Danny Flores Consult Reason/Comments: Exertional dyspnea Do you want consulting provider notified?: Yes Primary care physician: [facility] Course: 71-year-old male with a past medical history of hyperlipidemia. He presented to the emergency department with a chief complaint of worsening shortness of breath with exertion. Patient reports this began approximately 6 months ago and has progressively worsened. Patient's family at bedside reports that they have noticed over the past week the patient cannot even bend over and tie his shoes without taking more than 5 minutes to recover in which they report he gasps for air. Patient denies having any chest pain or palpitations, dizziness, lightheadedness, abdominal pain, nausea, vomiting, changes in appetite, changes in or difficulties with urinary or bowel function, recent weight loss or weight gain and denies having any numbness/tingling/weakness in his extremities. Patient does report nicotine use of smoking approximately 4-5 cigarettes daily. In the emergency department patient underwent full evaluation. CBC and CMP were unremarkable. Troponin was negative at less than 0.012. Chest x-ray was negative. D-dimer was elevated at 0.063 and CTA completed which was also negative for pulmonary emboli or any other acute cardiopulmonary process. EKG showing normal sinus rhythm at 77 bpm with J-point elevation in leads II and V6. Patient admitted and consult was placed to cardiology. Patient had an echo that showed normal EF of 60-65% with no significant valvular abnormalities. 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 Cardiac catheterization done by cardio, came back clear. He is cleared by cardio for discharge. Patient counseled on smoking cessation and risks of continued use, patient will need to follow up outpatient with quick technician for PFTs. He will be discharged in a stable condition. Time for discharge 36 min Patient Condition at Discharge: Fair Plan - Discharge Summary Discharge Rx Participant: No New Discharge Prescriptions: New Nitroglycerin Sl Tabs [Nitrostat] 0.4 mg SUBLINGUAL Q5M PRN 90 Days #90 tab PRN Reason: Chest Pain Continue Atorvastatin [Lipitor] 10 mg PO DAILY Fluticasone/Vilanterol [Breo Ellipta 100-25 Mcg Inhaler] 1 puff INHALATION RT-DAILY Discharge Medication List Atorvastatin [Lipitor] 10 mg PO DAILY 09/26/19 [History] Fluticasone/Vilanterol [Breo Ellipta 100-25 Mcg Inhaler] 1 puff INHALATION RT- DAILY 07/23/21 [History] Nitroglycerin Sl Tabs [Nitrostat] 0.4 mg SUBLINGUAL Q5M PRN 90 Days #90 tab 07/25/21 [Rx] Follow up Appointment(s)/Referral(s): Aashish Goodman MD [Primary Care Provider] - 1-2 days Martha Helm MD [STAFF PHYSICIAN] - 1 Week Patient Instructions/Handouts: How to Stop Smoking (GEN), After Radial Heart Catheterization (GEN), Left Heart Catheterization (DC) Discharge/Stand Alone Forms: Who Do I Call?, Help In The Home, Personal [employer]er [employer]
== END 2021-07-25 15:48 | disposition home or self-care (01) ==
LOC: EC 09:14 → 6NMEDSUR 12:49 → INTOOBSV 07-24 13:40 → OBSVTOIN 07-24 13:40 → UNDODISIN 07-25 15:48
PROVIDERS: ADMIT Internal Medicine; ATTEND Internal Medicine
DX: I51.81 Takotsubo syndrome (principal); R06.09 Other forms of dyspnea; I10 Essential (primary) hypertension; I34.0 Nonrheumatic mitral (valve) insufficiency; F17.210 Nicotine dependence, cigarettes, uncomplicated; Z71.6 Tobacco abuse counseling; E78.5 Hyperlipidemia, unspecified; Z79.899 Other long term (current) drug therapy; Z98.41 Cataract extraction status, right eye; Z96.1 Presence of intraocular lens; Z82.3 Family history of stroke; Z83.3 Family history of diabetes mellitus
CPT/HCPCS: 78452 ×2; 71275 ×2; 96372 ×2; 99285; 36415; 93005; 93017; 93306; 93458; 85379; 83880; 80061; 80053; 80048; 83605; 83735; 84484; 85025 ×2; 85610; 85730; 71046; G0378 ×3; C1894; C1769; A9500; S4990 ×3; J2250; J2001; J3010; J1644 ×3; Q9967 ×2